=== PATIENT | female | born 1945 | race Caucasian/White ===

== ENCOUNTER 2023-06-02 08:37 | Emergency (ER) | payer BC, SELFPAY ==
[2023-06-02] VITALS (15 sets, daily range): BP systolic 129–162; BP diastolic 58–84; PULSE 41–56; RESP 10–18; TEMP 36.5–36.8; O2SAT 96–100
--- NOTE | ~2023-06-02 | XR_ITS ---
EXAMINATION: XR chest 2V DATE: 06/02/2023 10:23 INDICATION: Bradycardia TECHNIQUE: frontal and lateral views of the chest were obtained. COMPARISON: None FINDINGS: Eventration along the left hemidiaphragm. No other airspace opacities, pulmonary edema, pleural effus ion or pneumothorax. The cardiomediastinal silhouette is normal. Surgical clips at the epigastric reg ion. IMPRESSION: 1. No acute cardiopulmonary disease. Reviewed, dictated and finalized at [facility].
--- NOTE | ~2023-06-02 | CT_ITS ---
EXAMINATION: CT brain wo con DATE: 06/02/2023 10:17 INDICATION: Increased confusion. TECHNIQUE: Computed tomography (CT) of the head was performed without intravenous contrast. The mA wa s adjusted according to patient size. Iterative reconstruction technique was employed. Exam dose: 60 5.33 mGy-cm total exam DLP. COMPARISON: None FINDINGS: There is central and cortical cerebral and cerebellar atrophy. No intracranial mass lesion or hemorrhage or cerebrovascular accident is detected. No midline shift or mass effect. There is prominent bilateral internal carotid artery calcification. There is nonspecific diminished attenuation of the cerebral white matter, likely due to chronic small vessel ischemic changes. No subdural or epidural hematoma. No orbital mass lesion. The mastoid air cells and paranasal sinuses are normally developed and aerated. No fracture or bone destruction of the cranial vault. IMPRESSION: Cerebral atherosclerosis and chronic small vessel ischemic changes of the cerebral white matter. Cerebral and cerebellar atrophy No acute intracranial finding Reviewed, dictated and finalized at [facility]. Reviewed, dictated and finalized at location [facility].
--- NOTE | 2023-06-02 08:44 | ECG_ITS ---
Measurements Intervals [place] Rate: 51 P: 74 MN: 126 QRS: 38 QRSD: 73 T: 43 QT: 409 QTc: 378 Interpretive Statements SINUS BRADYCARDIA EARLY PRECORDIAL R/S TRANSITION BASELINE ARTIFACT- I, II, III, AVR, AVL, AVF, V1-V3 BORDERLINE ECG NO PREVIOUS ECG AVAILABLE FOR COMPARISON Electronically Signed On 06-02-2023 9:18:31 CDT by Clint Mccoy D.O.
--- NOTE | 2023-06-02 09:06 | ED.ARRPALP ---
HPI - Arrhythmia/Palpitations General Chief Complaint: Arrhythmia/Palpitations Stated Complaint: BRADYCARDIA Time Seen by Provider: 06/02/23 08:58 Source: patient and family Mode of arrival: ambulatory Limitations: no limitations and dementia History of Present Illness HPI narrative: Patient is a 78-year-old female, with past medical history of dementia, who presents to ED with report of bradycardia. Patient's daughter assisted in providing information. Reports patient underwent cataract surgery last Thursday with [facility]. She was scheduled for the other eye today, however was reportedly confused this morning, unable to tell the staff why she was at her appointment. She was also noted to be bradycardic with a heart rate in the 40s. Daughter called primary care doctor was referred here for further evaluation. Daughter denies ever having issues with bradycardia in the past. Heart rate was reportedly is the 60s with surgery last week. Daughter states patient seems at her baseline to her, does not appear confused, is often groggy in the mornings. Patient states she feels fine currently. Feels at her baseline. Denies dizziness, lightheadedness, nausea, vomiting, chest pain, palpitations, shortness of breath, focal weakness or numbness, headache. Related Data Home Medications Medication Instructions Recorded Confirmed ciprofloxacin HCl 0.3 % eye drops drp 06/02/23 cyanocobalamin (vitamin B-12) mcg 06/02/23 1,000 mcg/mL injection solution diclofenac sodium 0.1 % eye drops drp 06/02/23 donepezil 10 mg tablet mg 06/02/23 dorzolamide 22.3 mg-timolol 6.8 06/02/23 mg/mL eye drops ferrous sulfate 325 mg (65 mg mg 06/02/23 06/02/23 iron) tablet (FeroSul) furosemide 20 mg tablet mg 06/02/23 hydroxyzine HCl 10 mg tablet mg 06/02/23 memantine 7 mg capsule mg PO 06/02/23 sprinkle,extended release 24hr potassium chloride 10 mEq meq PO 06/02/23 tablet,extended release(part/cryst) prednisolone acetate 1 % eye drp 06/02/23 drops,suspension sucralfate 1 gram tablet 06/02/23 triamcinolone acetonide 0.1 % applic topical 06/02/23 topical cream Allergies Allergy/AdvReac Type Severity Reaction Status Date / Time Penicillins Allergy Unknown Verified 06/02/23 08:44 Review of Systems Review of Systems: CONSTITUTIONAL: Denies fever, chills, or sweats. ENT: Denies rhinorrhea, congestion, sore throat. CARDIOVASCULAR: See HPI. RESPIRATORY: Denies cough or dyspnea. GASTROINTESTINAL: Denies abdominal pain, nausea, vomiting. NEUROLOGIC: Denies headache, dizziness, numbness, or weakness. All systems reviewed & are unremarkable except as noted in HPI and below PMFSH Past Medical History Medical History (Updated 06/02/23 @ 12:17 by Kika Luther PA-C) Dementia Exam Narrative: GENERAL: Elderly, non-toxic, in no acute distress. HEAD: Normocephalic, atraumatic. EYES: PERRL, EOMI RESPIRATORY: Airway patent, respirations nonlabored. Clear to auscultation bilaterally, no rales, rhonchi, wheezing. CARDIOVASCULAR: Bradycardic with regular rhythm without murmurs, rubs, or gallops. MUSCULOSKELETAL: Moves all extremities. No gross deformities. SKIN: Warm, dry, normal color. NEURO: A&O X3. Speech clear. Cranial nerves II-XII grossly intact. Steady gait. No ataxic movements. No focal deficits. PSYCHIATRIC: Appropriate mood and affect. Normal interaction. Course Vital Signs Vital signs: Vital Signs Temperature 97.7 F 06/02/23 08:40 Pulse Rate 53 L 06/02/23 08:40 Respiratory Rate 16 06/02/23 08:40 Blood Pressure 151/75 H 06/02/23 08:40 Pulse Oximetry 100 06/02/23 08:40 Oxygen Delivery Room Air 06/02/23 08:40 Temperature 98.3 F 06/02/23 12:50 Pulse Rate 51 L 06/02/23 12:50 Respiratory Rate 18 06/02/23 12:50 Blood Pressure 138/61 06/02/23 12:50 Pulse Oximetry 98 06/02/23 12:50 Oxygen Delivery Room Air 06/02/23 08:40 MDM - Arrhythmia/Palpitati
[2023-06-02 09:57] LABS: Basophils Absolute Auto 0.2 K/mm3 (0.0-0.1); Basophils Percent Auto 2.2 % (0.2-1.2); Eosinophils Absolute Auto 0.5 K/mm3 (0-0.3); Eosinophils Percent Auto 6.1 % (0-4.4); Hematocrit 43.4 % (37.0-47.0); Hemoglobin 13.7 g/dL (12.0-15.0); Immature Granulocyte Absolute 0.06 K/mm3 (0.00-0.031); Immature Granulocyte Percent A 0.7 % (0-0.5); Lymphocytes Percent Auto 24.8 % (18.3-44.2); Mean Corpuscular HGB Conc 31.6 g/dl (32-36); Mean Corpuscular Hemoglobin 30.4 pg (26-34); Mean Corpuscular Volume 96.2 fl (80-100); Mean Platelet Volume 9.7 fl (7.4-10.4); Monocytes Absolute Auto 0.7 K/mm3 (0.1-0.6); Monocytes Percent Auto 8.1 % (2.6-8.5); Neutrophils Absolute Auto 4.9 K/mm3 (1.3-6.7); Neutrophils Percent Auto 58.1 % (45.5-73.1); Platelet Count Result 277 k/mm3 (150-375); Red Blood Count 4.51 M/mm3 (4.2-5.4); White Blood Count 8.5 K/mm3 (4.5-10.0)
[2023-06-02 10:08] LABS: INR 1.1; Prothrombin Time 14.2 Seconds (11.1-14.7)
[2023-06-02 10:09] LABS: Partial Thromboplastin Time 27.7 Seconds (22.3-36.8)
[2023-06-02 10:11] LABS: Alanine Aminotransferase 22 U/L (6-35); Alkaline Phosphatase 110 U/L (38-126); Anion Gap 6 mmol/L (8-16); Aspartate Amino Transferase 33 U/L (14-36); Bilirubin,Total 0.6 mg/dL (0.2-1.3); Blood Urea Nitrogen 19 mg/dL (7-17); Calcium 8.8 mg/dL (8.4-10.2); Carbon Dioxide 25 mmol/L (22-30); Chloride 111 mmol/L (98-107); Estimated CRCL calculation 35 ml/min; Estimated Glomerular Filt Rate 43; Glucose 114 mg/dL (65-110); Magnesium 2.6 mg/dL (1.6-2.3); Potassium 4.1 mmol/L (3.4-5.0); Sodium 142 mmol/L (137-145)
[2023-06-02 10:22] LABS: Troponin I < 0.012 ng/mL (0.000-0.034)
== END 2023-06-02 12:52 | disposition home or self-care (01) ==
PROVIDERS: Emergency Provider Physician Assistant
DX: R00.1 Bradycardia, unspecified (principal); F03.90 Unspecified dementia, unspecified severity, without behavioral disturbance, psychotic disturbance, mood disturbance, and anxiety; Z98.49 Cataract extraction status, unspecified eye; I67.2 Cerebral atherosclerosis
CPT/HCPCS: 36415; 70450; 71046; 80053; 83735; 84443; 84484; 85025; 85610; 85730; 93005; 99284